=== PATIENT | male | born 1945 | race Caucasian/White ===

== ENCOUNTER 2022-02-21 11:57 | Outpatient (CLI) | payer MEDICARE ==
[~2022-02-21 11:57] MED LIST: Iopamidol 370 76% 100 ML VIAL ONE
== END 2022-02-21 11:58 | disposition home or self-care (01) ==
LOC: CSHCT 11:57
PROVIDERS: ATTEND Internal Medicine Cardiovascular Disease
DX: I71.2 Thoracic aortic aneurysm, without rupture (principal)
CPT/HCPCS: 71275; 82565; Q9967